=== PATIENT | male | born 2000 ===

== ENCOUNTER 2019-06-27 14:05 | Emergency (ER) | payer BC ==
[2019-06-27 14:53] VITALS: BP 141/92
--- NOTE | 2019-06-27 15:17 | UC ---
FLU HPI - HPI Summary HPI Summary: 19-year-old college student who is had flulike symptoms since last evening with fever, body aches, chills mild nonproductive cough. He states last week he had cold symptoms for about 2 or 3 days which resolved and he was completely better until last evening. He did not get a flu shot in the fall. - History of Current Complaint Chief Complaint: UCGeneralIllness Stated Complaint: FLU LIKE SYMPTOMS Time Seen by Provider: 06/27/19 15:09 Hx Obtained From: Patient Onset/Duration: Sudden Onset, Lasting Hours Severity Currently: Mild Severity Initially: Moderate Pain Intensity: 6 Associated Signs & Symptoms: Positive: Fever, Myalgia, Cough, Nasal Congestion Related Hx: Possible Flu/Infectious Exposure - Allergy/Home Medications Allergies/Adverse Reactions: Allergies Allergy/AdvReac Type Severity Reaction Status Date / Time shellfish derived Allergy Severe states Verified 06/27/19 14:53 unk, hives Home Medications: Home Medications NK [No Home Medications Reported] 06/27/19 [History Confirmed 06/27/19] PMH/Surg Hx/FS Hx/Imm Hx Previously Healthy: Yes - Surgical History Surgical History: None - Family History Known Family History: Positive: Non-Contributory - Social History Occupation: Student Lives: Dormitory/Roommates Alcohol Use: None Substance Use Type: None Smoking Status (MU): Never Smoked Tobacco Review of Systems All Other Systems Reviewed And Are Negative: Yes Constitutional: Positive: Fever, Chills ENT: Positive: Nasal Discharge Respiratory: Positive: Cough Musculoskeletal: Positive: Myalgia Is Patient Immunocompromised?: No Physical Exam Triage Information Reviewed: Yes Appearance: Well-Appearing, No Pain Distress, Well-Nourished Vital Signs: Initial Vital Signs Temp 99.1 F 06/27/19 14:47 Pulse 122 06/27/19 14:47 Resp 16 06/27/19 14:47 BP 141/92 06/27/19 14:47 Pulse Ox 99 06/27/19 14:47 Vital Signs Reviewed: Yes Eyes: Positive: Conjunctiva Clear ENT: Positive: Hearing grossly normal, Pharynx normal, Nasal drainage - Clear nasal coryza, TMs normal, Uvula midline Neck: Positive: Supple, Nontender, No Lymphadenopathy Respiratory: Positive: Lungs clear, Normal breath sounds, No accessory muscle use Cardiovascular: Positive: No Murmur, Pulses Normal, Brisk Capillary Refill, Tachycardia Musculoskeletal: Positive: Strength Intact, ROM Intact, No Edema Neurological: Positive: Alert, Muscle Tone Normal Psychological Exam: Normal Skin Exam: Normal Flu Course/Dx - Course Course Of Treatment: Rapid flu test: Positive for influenza A The patient has no chronic health problems and he actually appears quite well so he opted not to take Tamiflu. No classes until Tuesday and he is to rest and increase fluids and [facility] no improvement by Tuesday. - Differential Dx/Diagnosis Provider Diagnosis: Influenza A Discharge ED - Sign-Out/Discharge Documenting (check all that apply): Patient Departure All imaging exams completed and their final reports reviewed: No Studies - Discharge Plan Condition: Good Disposition: HOME Patient Education Materials: Influenza (DC) Forms: *School Release Referrals: [facility] - [facility] [place] [Z.BUSINESS, APPLICATION, OTHER] - No Primary Care Phys,NOPCP [Primary Care Provider] - Additional Instructions: Increase fluids, rest, [id number] cold medicines as directed. Follow up at the [facility] if no improvement by Tuesday. - Billing Disposition and Condition Condition: GOOD Disposition: Home
[2019-06-27 15:30] LABS: Influenza A Molecular POSITIVE (Negative)
== END 2019-06-27 16:01 | disposition home or self-care (01) ==
LOC: UCEAST 14:05
DX: J10.1 Influenza due to other identified influenza virus with other respiratory manifestations (principal); Z91.013 Allergy to seafood
CPT/HCPCS: 99201; G0463